=== PATIENT | female | born 1995 | race Caucasian/White ===

== ENCOUNTER → 2021-08-20 | Outpatient (CLI) | payer BC, OTHER ==
--- NOTE | 2021-08-20 08:32 | RAD ---
EXAM: Abdomen sonogram. HISTORY: Pain. TECHNIQUE: Sonographic imaging of the abdomen was performed. COMPARISON: None. FINDINGS: The liver is normal in size. No hepatic lesion is seen. The gallbladder surgically absent. The common bile duct is normal in caliber. The right kidney, pancreas and inferior vena cava are unre markable. IMPRESSION: 1. Cholecystectomy. 2. Otherwise, unremarkable abdomen sonogram. Electronically signed by: Kait Mendoza MD (08/20/2021 8:30 AM) [id number]
--- NOTE | 2021-08-20 12:40 | RAD ---
EXAM: Nuclear gastric emptying scan. HISTORY: Pain. COMPARISON: None. TECHNIQUE: Serial static images were obtained over the stomach following oral administration of 2 mCi 99m-Tc sulfur colloid. FINDINGS: The stomach empties into the small bowel without evidence of reflux in the area of the esop hagus. Gastric retention percents: 1 hour 77% (normal range 34.8-91%) 2 hour 25% (normal range 2.7-60%) 3 hour 8% (normal range 0.5-28%) 4 hour 3% (normal range 0-10%) The estimated time for half emptying of gastric contents, i.e. 'gastric emptying time' is 91 minutes (normal is 66 +/- 22 minutes). IMPRESSION: Borderline delayed gastric emptying half-time. The gastric emptying at 1 hour, 2 hours, 3 hours and 4 hours remains within normal limits. Electronically signed by: Kait Mendoza MD (08/20/2021 12:38 PM) [id number]
== END ==
LOC: US 07:02
PROVIDERS: ATTEND Internal Medicine Gastroenterology
DX: R10.9 Unspecified abdominal pain (principal); Z90.49 Acquired absence of other specified parts of digestive tract
CPT/HCPCS: 76705; 78264; A9541